=== PATIENT | female | born 1960 | race Caucasian/White ===

== ENCOUNTER 2021-01-22 22:06 | Emergency (ER) | payer OTHER, SELFPAY ==
[2021-01-22 22:15] VITALS: BP 154/83; PULSE 60; RESP 17; TEMP 36.6; O2SAT 100; BMI 22.4
--- NOTE | 2021-01-22 22:31 | DI.RAD.S_ITS ---
PROCEDURE: XR FOREARM LT 2V INDICATIONS: recent fall with fracture TECHNIQUE: 2 views of the forearm were acquired. COMPARISON: None. FINDINGS: Bones: There is an impacted, mildly to moderately displaced, intra-articular fracture of the distal radius. The overlying casting material limits evaluation of fine detail. Soft tissues: No suspicious soft tissue calcifications or masses. IMPRESSION: Impacted, mildly to moderately displaced fracture of the distal radius, with intra-articular involvement. Note: No significant discrepancy from the preliminary report. Dictated by: Lizandro Flores M.D. on 01/23/2021 at 9:20 Approved by: Lizandro Flores M.D. on 01/23/2021 at 9:21
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
[2021-01-23 00:27] VITALS: BP 151/82; PULSE 48; RESP 16; O2SAT 99
== END 2021-01-23 00:31 | disposition home or self-care (01) ==
PROVIDERS: Emergency Provider Emergency Medicine
DX: S52.502A Unspecified fracture of the lower end of left radius, initial encounter for closed fracture (principal); W19.XXXA Unspecified fall, initial encounter
CPT/HCPCS: 73090; 99283

== ENCOUNTER → 2021-01-27 13:13 | Outpatient (CLI) | payer OTHER, SELFPAY ==
--- NOTE | 2021-01-27 | DI.CT.S_ITS ---
PROCEDURE: CT UE LT WO CON INDICATIONS: Unspecified fracture of the lower end of left radi TECHNIQUE: Noncontrast 1 mm axial sections acquired through the carpal bones, with coronal and sagittal reformats. COMPARISON: None. FINDINGS: Image quality: Excellent. Bones: Comminuted impacted distal radial metaphyseal fracture with intra-articular extension. There is approximately 5 mm of diastasis of the articular surface and up to 1-2 mm of cortical step-off. There is loss of the normal volar angulation of the distal radial articular surface. Soft tissues: Associated soft tissue swelling is present IMPRESSION: Comminuted, impacted distal radial intra-articular fracture as above. Dictated by: Burak Fenton M.D. on 01/27/2021 at 15:41 Approved by: Burak Fenton M.D. on 01/27/2021 at 15:46
== END ==
PROVIDERS: Referring Provider Physician Assistant Medical; Visit Provider Physician Assistant Medical
DX: S52.572A Other intraarticular fracture of lower end of left radius, initial encounter for closed fracture (principal); X58.XXXA Exposure to other specified factors, initial encounter
CPT/HCPCS: 73200